=== PATIENT | male | born 1970 | race African-American/Black ===

== ENCOUNTER 2018-04-19 11:47 | Emergency (ER) | payer OTHER ==
[~2018-04-19] VITALS: Ht 172.7 cm; Wt 56.2 kg
[2018-04-19] MEDS ORDERED: PROPARACAINE 0.5% OPHTH SOLUTION 15ML BOTTLE. OS ONE (12:15)
[2018-04-19] MEDS ORDERED: IOHEXOL 300 MG/ML 100ML VIAL. IV ONE (13:15)
[2018-04-19] MEDS ORDERED: CONTRAST GIVEN. MC PRN (13:15)
[2018-04-19 13:32] LABS: BASO # 0.1 x10^3/uL (0.0-0.2); BASO % 1 % (0-3); EOS # 0.1 x10^3/uL (0.0-0.7); EOS % 1 % (0-3); HEMATOCRIT 40.8 % (39.0-53.0); LYMPH # 1.5 x10^3/uL (1.0-4.8); LYMPH % 21 % (24-48); MEAN CORPUSCULAR HEMOGLOBIN 32 pg (25-35); MEAN CORPUSCULAR HGB CONC 34 g/dL (31-37); MEAN CORPUSCULAR VOLUME 93 fL (79-100); MONO # 0.5 x10^3/uL (0.0-1.1); MONO % 7 % (0-9); NEUT # 4.9 x10^3uL (1.8-7.7); NEUT % 71 % (31-73); PLATELET COUNT 257 x10^3/uL (140-400); RED CELL DISTRIBUTION WIDTH 12.8 % (11.5-14.5)
[2018-04-19 13:39] LABS: CALCIUM 9.5 mg/dL (8.5-10.1); CREATININE 0.7 mg/dL (0.7-1.3); GFR 146.9; POTASSIUM 4.5 mmol/L (3.5-5.1)
--- NOTE | 2018-04-19 16:24 | RAD ---
CTA head and neck History: Enlarged pupil, headache Technique: After bolus of intravenous contrast, volumetric CT data acquisition was acquired of the head and neck. Multiplanar reconstruction images to include MIP and 3-D reconstruction images are submitted. Exposure: One or more of the following individualized dose reduction techniques were utilized for this examination: 1. Automated exposure control 2. Adjustment of the mA and/or kV according to patient size 3. Use of iterative reconstruction technique. Contrast: 75 cc Omnipaque 300 Comparison: None Any determination of stenosis is based on NASCET criteria. CTA head: Findings: Both vertebral arteries constitute the basilar artery. There is visualization of segments of bilateral PICAs, AICAs, and superior cerebellar arteries. There are patent posterior communicating arteries bilaterally. No significant anterior communicating artery is visualized. There is visualization of the internal carotid arteries bilaterally at the skull base. There is visualization of the anterior, middle, posterior cerebral arteries bilaterally. No significant intracranial stenosis or aneurysm is identified. Impression: 1. No significant intracranial stenosis or aneurysm is identified. Neck CTA: Findings: There are normal anatomic origins of the great vessels. No significant stenosis or dissection flap is identified of the cervical arterial vasculature. There are hypodense foci of the thyroid gland bilaterally, largest on the right estimated about 1.1 cm and on the left about 1 cm. There is emphysema of the visualized lung apices. There is degenerative disc disease and spondylosis greatest C6-7. There is fairly severe narrowing of the right at C6-7 neural foramen in part from uncovertebral degenerative change. Impression: 1. No significant stenosis or dissection flap is identified of the cervical arterial vasculature. 2. There are hypodense foci of the thyroid gland bilaterally better evaluated by ultrasound. 3. There is emphysema of the visualized lung apices. 4. There is degenerative disc disease and spondylosis greatest C6-7, also fairly severe narrowing of the right C6-7 neural foramen. Electronically signed by: Ar Walker MD (04/19/2018 4:21 PM) [facility]
--- NOTE | 2018-04-19 16:44 | PHYS DOC ---
Past Medical History Past Medical History: No Pertinent History Past Surgical History: No Surgical History Alcohol Use: None Drug Use: None Adult General Chief Complaint Chief Complaint: EYE PROBLEMS HPI HPI Patient is a 47 year old incarcerated Afro-Dominican male with history of early cataracts who presents with atonic mid dilated pupil. Patient reports left retro -orbital headache and eye pain for 2 weeks that was evaluated by a local physician. The patient states he was prescribed eyedrops, but is unsure which eyedrops he may have been prescribed. Patient denies change in vision, eye trauma. No history of glaucoma. patient was evaluated by his alf physician this AM and was referred to ED for further for further evaluation. [] Review of Systems Review of Systems ROS as per HPI All other systems were reviewed and found to be within normal limits, except as documented in this note. Current Medications Current Medications Current Medications Medications (Trade) Dose Ordered Sig/Mary Start Time Stop Time Status Last Admin Dose Admin Info (CONTRAST GIVEN -- Rx MONITORING) 1 each PRN DAILY PRN 04/19/18 13:15 04/21/18 13:14 Iohexol (Omnipaque 300 Mg/ml) 75 ml 1X ONCE 04/19/18 13:15 04/19/18 13:16 DC 04/19/18 13:15 75 ML Proparacaine HCl (Alcaine) 1 drop 1X ONCE 04/19/18 12:15 04/19/18 12:20 DC 04/19/18 12:27 1 DROP Allergies Allergies Allergies Coded Allergies Type Severity Reaction Last Updated Verified naproxen Adverse Reaction Intermediate Nausea and Vomiting 04/19/18 Yes Physical Exam Physical Exam Constitutional: Well developed, well nourished, no acute distress, non-toxic appearance. [] HENT: Normocephalic, atraumatic, bilateral external ears normal, oropharynx moist, no oral exudates, nose normal. [] Eyes: No proptosis, orbital swelling, redness, rash or signs of trauma. Conjunctivae, noninjected, right pupil round and reactive with loss of consensual light reflex involving left pupil. Left pupil is 5 mm and dilated. On limited posterior funduscopic exam there are no gross abnormalities this provider can identify. Intraocular pressures are OS: 11, 11, 7 OD, 11, 12, 14. visual acuity is intact.see nursing notes for further details. Neck: Normal range of motion. [] Cardiovascular:Heart rate regular rhythm, no murmur [] Lungs & Thorax: Bilateral breath sounds clear to auscultation [] Abdomen: Bowel sounds normal, soft, no tenderness, no masses, no pulsatile masses. [] Skin: Warm, dry, no erythema, no rash. [] Back: No tenderness, no CVA tenderness. [] Extremities: No tenderness, no cyanosis, no clubbing, ROM intact, no edema. [] Neurologic: Alert and oriented X 3, normal motor function, normal sensory function, no focal deficits noted. [] Psychologic: Affect normal, judgement normal, mood normal. [] Current Patient Data Vital Signs Vital Signs Date Time Temp Pulse Resp B/P (MAP) Pulse Ox O2 Delivery O2 Flow Rate FiO2 04/19/18 13:20 50 14 119/88 (98) 100 Room Air 04/19/18 12:05 98.1 98.1 Lab Values Laboratory Tests Test 04/19/18 13:20 White Blood Count 7.0 x10^3/uL (4.0-11.0) Red Blood Count 4.40 x10^6/uL (4.30-5.70) Hemoglobin 14.0 g/dL (13.0-17.5) Hematocrit 40.8 % (39.0-53.0) Mean Corpuscular Volume 93 fL (79-100) Mean Corpuscular Hemoglobin 32 pg (25-35) Mean Corpuscular Hemoglobin Concent 34 g/dL (31-37) Red Cell Distribution Width 12.8 % (11.5-14.5) Platelet Count 257 x10^3/uL (140-400) Neutrophils (%) (Auto) 71 % (31-73) Lymphocytes (%) (Auto) 21 % (24-48) L Monocytes (%) (Auto) 7 % (0-9) Eosinophils (%) (Auto) 1 % (0-3) Basophils (%) (Auto) 1 % (0-3) Neutrophils # (Auto) 4.9 x10^3uL (1.8-7.7) Lymphocytes # (Auto) 1.5 x10^3/uL (1.0-4.8) Monocytes # (Auto) 0.5 x10^3/uL (0.0-1.1) Eosinophils # (Auto) 0.1 x10^3/uL (0.0-0.7) Basophils # (Auto) 0.1 x10^3/uL (0.0-0.2) Sodium Level 144 mmol/L (136-145) Potassium Level 4.5 mmol/L (3.5-5.1) Chloride Level 106 mmol/L (98-107) Carbon Dioxide Level 33 mmol/L (21-32) H Anion Gap 5 (6-14) L Blood Urea Nitrogen 7 mg/dL (8-26) L Creatinine 0.7 mg/dL (0.7-1.3) Estimated GFR (Cockcroft-Gault) 146.9 Glucose Level 101 mg/dL (70-99) H Calcium Level 9.5 mg/dL (8.5-10.1) Laboratory Tests 04/19/18 13:20 Laboratory Tests 04/19/18 13:20 EKG EKG [] Radiology/Procedures Radiology/Procedures [] Course & Med Decision Making Course & Med Decision Making Pertinent Labs and Imaging studies reviewed. (See chart for details) [Atonic left pupil with ongoing left retro-orbital headache for the past 2 weeks. Visual acuity intact. Intraocular pressure is normal. CT angiogram head performed to rule out expanding aneurysm or mass. CT is negative. workup coordinated with Dr. Red on-call for ophthalmology. Given the lack of acute findings in the emergency department and the preservation of vision patient will be referred to an online trader in the office early next week per his physician.] Dragon Disclaimer Dragon Disclaimer This electronic medical record was generated, in whole or in part, using a voice recognition dictation system. Departure Departure Impression: Primary Impression: Pupillary anomaly, left Disposition: 01 HOME, SELF-CARE Condition: STABLE Referrals: UNKNOWN PCP NAME (PCP) Additional Instructions: Eye exam was performed. There was no difference in visual acuity and ocular pressures were checked and were normal. CT angiogram was performed and did reveal any aneurysm or masses. It is important that Mr. Lopez follows up with an online trader in the office early next week. Please bring medical records and all eye drops to appt. AUBRIE MARTINEZ DO Apr 19, 2018 16:44
[2018-04-19 17:00] VITALS: BP 115/79
== END 2018-04-19 17:00 | disposition home or self-care (01) ==
LOC: ER 11:47 → EEVIPCON 11:47 → ER 17:00
DX: H57.04 Mydriasis (principal); R51 Headache; H57.12 Ocular pain, left eye; Z88.5 Allergy status to narcotic agent
CPT/HCPCS: 36415; 70496; 70498; 80048; 85025; 99285; Q9967

== ENCOUNTER → 2021-03-09 | Day surgery (SDC) | payer OTHER ==
[~2021-03-09] VITALS: Ht 172.7 cm; Wt 56.4 kg
[~2021-03-09] MED LIST: IV RINGERS,LACTATED 1000ML 1,000 ML IV SCH; LIDOCAINE 2% PF 5 ML VIAL. ONE; PROPOFOL 10 MG/ML (20ML) VIAL. IV ONE; fentaNYL PF VIAL 100 MCG/2 ML VIAL ONE
[2021-03-09 06:46] VITALS: BP 125/90
[2021-03-09 08:27] VITALS: BP 126/71
--- NOTE | 2021-03-09 10:47 | CONS ---
DATE OF CONSULTATION: 03/09/2021 REFERRING PHYSICIAN: ____. REASON FOR CONSULTATION: Dysphagia, GERD and weight loss. HISTORY OF PRESENT ILLNESS: A 50-year-old -[place] male with past medical history significant for hypertension, gastroesophageal reflux disease, is seen with worsening heartburn. He has been on omeprazole 40 mg daily over the past 6 months without improvement. Food sticks in the substernal location, requiring fluids to either wash the bolus through or regurgitate back, lost approximately 15 pounds. There has been no bleeding. With the continued issues, consultation is requested for upper endoscopy. PAST MEDICAL HISTORY: Gastroesophageal reflux disease, hypertension, anxiety. ALLERGIES: NAPROSYN. MEDICATIONS: Include Remeron, amlodipine, omeprazole, and Zyrtec. SOCIAL HISTORY: Former smoker and drinker. Presently incarcerated. FAMILY HISTORY: Noncontributory. REVIEW OF SYSTEMS: HEENT: There is no decreased hearing or visual acuity issues. CARDIAC: History of hypertension. PULMONARY: No shortness of breath, cough, asthma. NEUROLOGIC: No stroke, migraine, neuropathy. PSYCHIATRIC: There is anxiety. GASTROINTESTINAL: See history of present illness. HEMATOLOGIC: No bleeding, bruising, coagulopathy. ENDOCRINE: No history of heat or cold intolerance, thyroid disease. DERMATOLOGIC: No skin rashes or pruritus. GASTROINTESTINAL: See history of present illness. PHYSICAL EXAMINATION: GENERAL: Reveals a well-nourished, well-developed male. VITAL SIGNS: Temperature 98.3, pulse ____, respirations 20. LUNGS: Clear. CARDIOVASCULAR: Reveals S1, S2, without S3, S4 or appreciable murmur. ABDOMEN: Reveals a soft abdomen, normal bowel sounds, no appreciable hepatosplenomegaly. ASSESSMENT AND PLAN: Reflux with dysphagia and weight loss. Differential includes peptic stricture, Cooney's, eosinophilic esophagitis, achalasia, malignancy, Schatzki's ring. Risks, benefits of procedure, including perforation have been discussed. The patient is willing to proceed at this time. I would like to thank ____ for allowing us to consult and participate in the patient's care. JESÚS/DIETER/MERCEDES DR: Erick TID: [id number]
--- NOTE | 2021-03-10 16:08 | PATHOLOGY ---
[facility] Accession Number: [id number] . 01 Material submitted: . esophagus - DISTAL ESOPHAGEAL BIOPSIES. Modifiers: distal . 01 Clinical history: . GERD EGD . 02 Diagnosis: Esophageal biopsies, distal esophagus: - Reflux esophagitis. (JPM:erma; 03/10/2021) [facility] 03/10/2021 1331 Local . 02 Comment: Sections of the distal esophageal biopsy reveal segments of focally tangentially oriented and obviously hyperplastic squamous esophageal mucosa. The findings are consistent with reflux esophagitis. There is no evidence of Cooney's change, dysplasia, or malignancy. (JPM:erma; 03/10/2021) . 02 Electronically signed: . Kody Black MD, Pathologist NPI- [id number] . 01 Gross description: . The specimen is submitted in formalin, labeled "Franklyn Lopez, distal esophageal biopsies". Received are multiple segments of pale baez tissue ranging in size from 0.3 to 0.4 cm in maximum dimensions. The specimen is submitted in cassette A1. ([facility]; 03/09/2021) NRI/NRI 03/09/2021 1713 Local . 02 Pathologist provided ICD-10: K21.00 . 02 CPT . 401621 Specimen Comment: A courtesy copy of this report has been sent to [phone], [phone] Specimen Comment: [id number] Specimen Comment: Report sent to / DR CARIAS Performed at: 01 [facility] [address], [place], [place] [id number] MD Vitaliy Booth MD Phone: [phone] Performed at: 02 [facility] [address] [place], [place] [id number] MD Kody Black MD Phone: [phone]
== END | disposition home or self-care (01) ==
LOC: ENDOS 06:19 → EEVIPCON 07:30
PROVIDERS: ATTEND Internal Medicine Gastroenterology
DX: R13.10 Dysphagia, unspecified (principal); R63.4 Abnormal weight loss; K21.00 Gastro-esophageal reflux disease with esophagitis, without bleeding; K31.89 Other diseases of stomach and duodenum; R12 Heartburn; K22.2 Esophageal obstruction; I10 Essential (primary) hypertension; Z79.899 Other long term (current) drug therapy; Z98.890 Other specified postprocedural states; Z88.8 Allergy status to other drugs, medicaments and biological substances
CPT/HCPCS: 43239; J2704; J3010; 43450; 88305